=== PATIENT | female | born 1950 | race African-American/Black ===

== ENCOUNTER 2017-01-30 22:36 | Inpatient (IN) | payer OTHER, MEDICAID ==
[~2017-01-30] VITALS: Ht 152.4 cm; Wt 73.9 kg
[2017-01-30] MEDS ORDERED: SODIUM CHLORIDE 0.9% 1,000 ML IV ONE (23:04)
[2017-01-30] MEDS ORDERED: MORPHINE SULFATE 4 MG/ML CPJ (NOT FOR IM USE) IV STA (23:04)
[2017-01-30] MEDS ORDERED: ONDANSETRON HCL 4MG/2ML VIAL IV STA (23:04)
[2017-01-30 23:37] LABS: BG BASE EXCESS 0.8 mmol/L (-2.0-2.0); BG CARBOXYHEMOGLOBIN 0.2 % (0.5-1.5); BG DEOXYHEMOGLOBIN 1.5 % (0.0-5.0); BG FRACTION INSPIRED OXYGEN 21; BG HCO3 ACT 19.2 mmol/L (22.0-26.0); BG METHEMOGLOBIN 0.3 % (0.0-1.5); BG OXYGEN SATURATION 98.5 % (92.0-98.5); BG PCO2 18.1 mmHg (35.0-45.0); BG PH 7.643 (7.350-7.450); BG PO2 101.3 mmHg (75.0-100.0); BG SAMPLE SITE RIGHT RADIAL; BG TOTAL HEMOGLOBIN 13.5 g/dL (12.0-18.0); BG VENT MODE ROOM AIR
[2017-01-31 00:28] LABS: BASOPHILS % 0.2 % (0.0-2.0); EOSINOPHILS % 0.1 % (0.0-5.0); HEMATOCRIT. 37.6 % (36.0-48.0); HEMOGLOBIN. 12.7 g/dL (12.0-16.0); LYMPHOCYTES % 20.1 % (20.0-50.0); MEAN CORPUSCULAR HEMOGLOBIN 30.2 pg (28.0-32.0); MEAN CORPUSCULAR VOLUME 89.3 fL (81.0-99.0); MONOCYTES % 5.3 % (2.0-8.0); NEUTROPHILS % 74.3 % (40.0-76.0); PLATELET 279 x1000/uL (130-400); RED BLOOD CELL COUNT 4.21 mill/uL (4.2-5.4); RED CELL DISTRIBUTION WIDTH 12.9 % (11.6-14.6)
[2017-01-31 00:43] LABS: CARBON DIOXIDE 23 mEq/L (21-32); CHLORIDE 101 mEq/L (98-107); TROPONIN I < 0.02 ng/mL (0.00-0.04)
[2017-01-31] MEDS ORDERED: SODIUM CHLORIDE 0.9% 1,000 ML IV SCH (02:40)
[2017-01-31] MEDS ORDERED: DEXTROSE 50% WATER 50ML SYRINGE IV PRN (05:30)
[2017-01-31] MEDS ORDERED: HYDROCODONE/ACETAMINOPHEN 5/325MG TABLET PO PRN (05:30)
[2017-01-31] MEDS ORDERED: LORAZEPAM 1MG TABLET PO PRN (05:30)
[2017-01-31] MEDS ORDERED: CLONIDINE 0.1MG TABLET PO PRN (05:30)
[2017-01-31] MEDS ORDERED: DOCUSATE SODIUM 100MG CAPSULE PO PRN (05:30)
[2017-01-31] MEDS ORDERED: IPRATROPIUM/ALBUTEROL 0.5-3(2.5)MG/3ML NEB INH PRN ×2 (05:30)
[2017-01-31] MEDS ORDERED: ACETAMINOPHEN 325MG TABLET PO PRN (05:30)
[2017-01-31] MEDS ORDERED: SODIUM CHLORIDE 0.9% 10ML VIAL ONE (06:00)
[2017-01-31] MEDS ORDERED: IOHEXOL-300 100 ML BOTTLE ONE (06:00)
[2017-01-31 06:54] LABS: CREATINE KINASE 103 IU/L (26-192); TROPONIN I < 0.02 ng/mL (0.00-0.04)
[2017-01-31 06:58] LABS: CLARITY URINE CLEAR (CLEAR); COLOR URINE YELLOW (YELLOW); GLUCOSE URINE 1+ (NEGATIVE); KETONES URINE TRACE (NEGATIVE); LEUKOCYTE ESTERASE URINE NEGATIVE (NEGATIVE); NITRITE URINE NEGATIVE (NEGATIVE); OCCULT BLOOD URINE TRACE (NEGATIVE); PROTEIN URINE NEGATIVE (NEGATIVE); SPECIFIC GRAVITY URINE 1.035 (1.005-1.030); UROBILINOGEN URINE 0.2 E.U./dL (0.2-1.0)
[2017-01-31 07:15] LABS: *AMPHETAMINES SCREEN URINE NEGATIVE (NEGATIVE); *BARBITURATES SCREEN URINE NEGATIVE (NEGATIVE); *BENZODIAZEPINES SCREEN URINE NEGATIVE (NEGATIVE); *COCAINE SCREEN URINE NEGATIVE (NEGATIVE); CANNABINOID URINE SCREEN NEGATIVE (NEGATIVE); METHADONE URINE SCREEN NEGATIVE (NEGATIVE); OPIATES URINE SCREEN PRESUMTIVE POSITIVE (NEGATIVE); PHENCYCLIDINE URINE SCREEN NEGATIVE (NEGATIVE)
[2017-01-31] MEDS: BLOOD SUGAR DIAGNOSTIC STRIP TEST SCH ×4 (07:40→20:51)
[2017-01-31 08:00] VITALS: BP_SYST 117; BP_SYST 129; BP_DIAS 54; BP_DIAS 76
[2017-01-31] MEDS: INSULIN LISPRO 100 UNITS/ML SUBCUT SCH ×4 (08:10→20:54)
[2017-01-31] MEDS ORDERED: INSULIN LISPRO 100 UNITS/ML SUBCUT SCH ×3 (08:10)
[2017-01-31] MEDS: SODIUM CHLORIDE 0.9% 1,000 ML IV SCH ×3 (08:46→23:38)
[2017-01-31] MEDS ORDERED: POTASSIUM CHLORIDE INJ 40 MEQ in DEXT 5% WATER 250 ML IV SCH (09:00)
[2017-01-31] MEDS ORDERED: LISINOPRIL 5MG TABLET PO SCH (09:00)
[2017-01-31 12:00] VITALS: BP 156/84
[2017-01-31] MEDS ORDERED: ASPI-1159 PO (15:27)
[2017-01-31 15:51] LABS: CREATINE KINASE 117 IU/L (26-192); TROPONIN I < 0.02 ng/mL (0.00-0.04)
[2017-01-31 16:00] VITALS: BP 153/73
[2017-01-31] MEDS: CEFTRIAXONE 1 G PREMIX 50 ML IV SCH (16:22)
[2017-01-31] MEDS: HYDROCODONE/ACETAMINOPHEN 10/325MG TABLET PO PRN (17:52)
[2017-01-31] MEDS: ONDANSETRON HCL 4MG/2ML VIAL IV PRN (18:19)
[2017-01-31 20:00] VITALS: BP 151/66
[2017-02-01 00:05] VITALS: BP 113/68
[2017-02-01 04:00] VITALS: BP 128/73
[2017-02-01] MEDS: HYDROCODONE/ACETAMINOPHEN 10/325MG TABLET PO PRN (05:30)
[2017-02-01] MEDS: ONDANSETRON HCL 4MG/2ML VIAL IV PRN (05:30)
[2017-02-01 07:23] LABS: BASOPHILS % 0.5 % (0.0-2.0); EOSINOPHILS % 0.3 % (0.0-5.0); HEMATOCRIT. 35.2 % (36.0-48.0); HEMOGLOBIN. 11.9 g/dL (12.0-16.0); LYMPHOCYTES % 28.4 % (20.0-50.0); MEAN CORPUSCULAR HEMOGLOBIN 30.4 pg (28.0-32.0); MEAN CORPUSCULAR VOLUME 90.3 fL (81.0-99.0); MEAN PLATELET VOLUME 9.6 fl (7.4-10.4); MONOCYTES % 10.7 % (2.0-8.0); NEUTROPHILS % 60.1 % (40.0-76.0); PLATELET 249 x1000/uL (130-400); RED CELL DISTRIBUTION WIDTH 13.1 % (11.6-14.6)
[2017-02-01] MEDS: BLOOD SUGAR DIAGNOSTIC STRIP TEST SCH ×2 (07:40→12:40)
[2017-02-01] MEDS: INSULIN LISPRO 100 UNITS/ML SUBCUT SCH ×2 (08:10→13:10)
[2017-02-01 08:13] LABS: CHLORIDE 107 mEq/L (98-107)
[2017-02-01 08:22] LABS: CARBON DIOXIDE 26 mEq/L (21-32); HDL CHOLESTEROL 46 mg/dL (40-59); LDL CHOLESTEROL 133 mg/dL (5-100); T4 FREE 1.19 ng/dL (0.76-1.46)
[2017-02-01 08:38] VITALS: BP 146/70
[2017-02-01] MEDS ORDERED: LISINOPRIL 20MG TABLET PO SCH (09:00)
[2017-02-01] MEDS: SODIUM CHLORIDE 0.9% 1,000 ML IV SCH ×2 (09:37→15:21)
[2017-02-01] MEDS ORDERED: LISI-604 PO (11:29)
[2017-02-01 12:35] VITALS: BP 146/80
[2017-02-01] MEDS: CEFTRIAXONE 1 G PREMIX 50 ML IV SCH (15:21)
== END 2017-02-01 17:02 | disposition home or self-care (01) | DRG 445 ==
LOC: ER 22:36 → 7WST 01-31 02:42 → ENRESERV 01-31 05:03
PROVIDERS: ADMIT Internal Medicine; ATTEND Internal Medicine
DX: K80.10 Calculus of gallbladder with chronic cholecystitis without obstruction (principal); E87.2 Acidosis; K86.1 Other chronic pancreatitis; K86.89 Other specified diseases of pancreas; K57.90 Diverticulosis of intestine, part unspecified, without perforation or abscess without bleeding; E11.9 Type 2 diabetes mellitus without complications; E66.9 Obesity, unspecified; E78.00 Pure hypercholesterolemia, unspecified; K21.9 Gastro-esophageal reflux disease without esophagitis; I10 Essential (primary) hypertension; K76.89 Other specified diseases of liver; Z90.710 Acquired absence of both cervix and uterus; Z68.31 Body mass index [BMI] 31.0-31.9, adult; Z98.891 History of uterine scar from previous surgery; Z88.6 Allergy status to analgesic agent
CPT/HCPCS: 36415; 36600; 71010; 74177; 74181; 80053; 80061; 80305; 81001; 82375; 82550; 82805; 82962; 83036; 83605; 83690; 84439; 84443; 84484; 85025; 93005; 93970; 96361; 96374; 96375; 99285; A4216; J0696; J1815; J2270; J2405; J3480; J7030; J7040; J7060; Q9967

== ENCOUNTER 2017-02-02 | Emergency (ER) | payer OTHER, MEDICAID ==
[~2017-02-02] VITALS: Ht 167.6 cm; Wt 81.0 kg
[~2017-02-02] MED LIST: ASPI-1159 PO; LISI-604 PO
[2017-02-02] MEDS ORDERED: SODIUM CHLORIDE 0.9% 1,000 ML IV ONE (01:54)
[2017-02-02] MEDS ORDERED: METOCLOPRAMIDE HCL 10MG/2ML VIAL IV STA (01:54)
[2017-02-02 02:11] LABS: BASOPHILS % 0.6 % (0.0-2.0); EOSINOPHILS % 0.1 % (0.0-5.0); HEMATOCRIT. 38.2 % (36.0-48.0); HEMOGLOBIN. 13.2 g/dL (12.0-16.0); LYMPHOCYTES % 10.4 % (20.0-50.0); MEAN CORPUSCULAR HEMOGLOBIN 30.7 pg (28.0-32.0); MEAN CORPUSCULAR VOLUME 89.1 fL (81.0-99.0); MEAN PLATELET VOLUME 8.8 fl (7.4-10.4); MONOCYTES % 5.9 % (2.0-8.0); PLATELET 258 x1000/uL (130-400); RED BLOOD CELL COUNT 4.29 mill/uL (4.2-5.4); RED CELL DISTRIBUTION WIDTH 12.9 % (11.6-14.6)
[2017-02-02 02:17] LABS: CHLORIDE 101 mEq/L (98-107)
[2017-02-02 02:24] LABS: CARBON DIOXIDE 25 mEq/L (21-32)
[2017-02-02] MEDS ORDERED: POTASSIUM CHLORIDE 20MEQ TABLET SR PO SCH (03:15)
[2017-02-02] MEDS ORDERED: ONDANSETRON HCL 4MG/2ML VIAL IV ONE (03:30)
[2017-02-02] MEDS ORDERED: ONDANSETRON HCL 4MG/2ML VIAL ONE (03:42)
[2017-02-02 04:30] VITALS: BP 135/85
== END 2017-02-02 06:39 | disposition home or self-care (01) ==
LOC: ER
DX: R11.2 Nausea with vomiting, unspecified (principal); R10.9 Unspecified abdominal pain; I10 Essential (primary) hypertension; E11.9 Type 2 diabetes mellitus without complications; Z79.82 Long term (current) use of aspirin; Z90.710 Acquired absence of both cervix and uterus; Z98.890 Other specified postprocedural states
CPT/HCPCS: 36415; 80053; 82962; 83690; 85025; 96361; 96374; 96375; 99285; J2405; J2765; J7030